=== PATIENT | male | born 1945 | race Caucasian/White ===

== ENCOUNTER → 2018-01-09 10:35 | Outpatient (CLI) | payer MEDICARE, OTHER, SELFPAY ==
[2018-01-09 11:40] LABS: Hematocrit 50.4 % (41-53); Hemoglobin 17.1 g/dL (13.5-17.5)
[2018-01-09 11:59] LABS: BUN Creatinine Ratio 14.4 (6-22); Blood Urea Nitrogen 26 mg/dL (9-20); Calcium 9.7 mg/dL (8.4-10.2); Carbon Dioxide 29 mmol/L (22-32); Chloride 100 mmol/L (98-107); Estimated Glomerular Filt Rate 37.4 mL/min (>60); Glucose 97 mg/dL (80-110); HEMOLYSIS < 15 (0-50); Potassium 4.6 mmol/L (3.4-5.1); Sodium 139 mmol/L (137-145)
[2018-01-09 15:54] LABS: Creatinine Urine Random 51.5 mg/dL; Protein (Total) Urine Random 150 mg/dL (0-12); Protein Creatinine Ratio Urine 2.91 GRAM/24H
[2018-01-13 14:57] LABS: Parathyroid Hormone Int 85 pg/mL (14-64)
== END ==
PROVIDERS: PCP Family Medicine; Visit Provider Student in an Organized Health Care Education/Training Program
DX: N05.9 Unspecified nephritic syndrome with unspecified morphologic changes (principal); D64.9 Anemia, unspecified; N25.81 Secondary hyperparathyroidism of renal origin; R80.9 Proteinuria, unspecified
CPT/HCPCS: 36415; 80048; 82570; 83970; 84156; 85014; 85018

== ENCOUNTER → 2018-03-02 13:29 | Outpatient (CLI) | payer MEDICARE, OTHER, SELFPAY ==
[2018-03-02 14:03] LABS: Hematocrit 48.4 % (41-53); Hemoglobin 16.4 g/dL (13.5-17.5)
[2018-03-02 14:40] LABS: Blood Urea Nitrogen 30 mg/dL (9-20); Calcium 9.8 mg/dL (8.4-10.2); Carbon Dioxide 28 mmol/L (22-32); Chloride 100 mmol/L (98-107); Estimated Glomerular Filt Rate 33.1 mL/min (>60); Glucose 91 mg/dL (80-110); HEMOLYSIS < 15 (0-50); Sodium 139 mmol/L (137-145)
[2018-03-02 17:56] LABS: Creatinine Urine Random 73.2 mg/dL; Protein (Total) Urine Random 74 mg/dL (0-12); Protein Creatinine Ratio Urine 1.01 GRAM/24H
[2018-03-04 13:53] LABS: Parathyroid Hormone Int 103 pg/mL (14-64)
== END ==
PROVIDERS: PCP Family Medicine; Visit Provider Student in an Organized Health Care Education/Training Program
DX: N05.9 Unspecified nephritic syndrome with unspecified morphologic changes (principal); D64.9 Anemia, unspecified; N25.81 Secondary hyperparathyroidism of renal origin; R80.9 Proteinuria, unspecified
CPT/HCPCS: 36415; 80048; 82570; 83970; 84156; 85014; 85018

== ENCOUNTER → 2018-03-31 09:32 | Outpatient (CLI) | payer MEDICARE, OTHER, SELFPAY | DX: Z23 Encounter for immunization (principal) | CPT/HCPCS: 90471; 90662 ==

== ENCOUNTER → 2018-08-03 17:41 | Outpatient (REF) | payer MEDICARE, OTHER, SELFPAY ==
[2018-08-03 17:49] LABS: Add Manual Diff / Slide Review NO; Basophils Absolute Auto 100 /uL (0-100); Basophils Percent Auto 1.4 % (0-2); Eosinophils Absolute Auto 300 /uL (0-450); Eosinophils Percent Auto 5.1 % (2-4); Hemoglobin 17.1 g/dL (13.5-17.5); Lymphocytes Absolute Auto 1300 /uL (1100-4500); Lymphocytes Percent Auto 19.9 % (25-40); Mean Corpuscular HGB Conc 32.9 % (30-36); Mean Corpuscular Hemoglobin 28.6 PG (26-34); Monocytes Absolute Auto 500 /uL (0-900); Monocytes Percent Auto 7.5 % (3-14); Neutrophils Absolute Auto 4200 /uL (1500-7000); Neutrophils Percent Auto 66.1 % (50-75); Platelet Count 170 X10^3/uL (150-400); Red Blood Cell Count 5.98 X10^6/uL (4.5-5.9); Red Cell Distribution Width 15.2 % (11.6-14.8); White Blood Cell Count 6.3 X10^3/uL (4.5-11.0)
[2018-08-03 17:54] LABS: BUN Creatinine Ratio 15.5 (6-22); Blood Urea Nitrogen 31 mg/dL (9-20); Carbon Dioxide 28 mmol/L (22-32); Chloride 101 mmol/L (98-107); Estimated Glomerular Filt Rate 33.1 mL/min (>60); Glucose 94 mg/dL (80-110); HEMOLYSIS < 15 (0-50); Potassium 4.1 mmol/L (3.4-5.1); Sodium 139 mmol/L (137-145); Uric Acid 5.4 mg/dL (3.5-8.5)
[2018-08-03 18:06] LABS: Troponin I < 0.012 ng/mL (0.01-0.034)
[2018-08-03 18:13] LABS: B Type Natriuretic Peptide 197 (<100)
[2018-08-03 18:25] LABS: Thyroid Stimulating Hormone 2.17 uIU/mL (0.47-4.68)
== END ==
LOC: LAB 17:41
PROVIDERS: PCP Family Medicine; Visit Provider Internal Medicine
DX: M10.9 Gout, unspecified (principal); I48.91 Unspecified atrial fibrillation
CPT/HCPCS: 80048; 83880; 84443; 84484; 84550; 85025

== ENCOUNTER → 2018-08-19 09:03 | Outpatient (CLI) | payer MEDICARE, OTHER, SELFPAY ==
[2018-08-19 10:11] LABS: Hematocrit 50.4 % (41-53); Hemoglobin 16.8 g/dL (13.5-17.5)
[2018-08-19 10:24] LABS: BUN Creatinine Ratio 14.4 (6-22); Blood Urea Nitrogen 26 mg/dL (9-20); Calcium 9.4 mg/dL (8.4-10.2); Carbon Dioxide 28 mmol/L (22-32); Chloride 100 mmol/L (98-107); Estimated Glomerular Filt Rate 37.4 mL/min (>60); Glucose 117 mg/dL (80-110); HEMOLYSIS < 15 (0-50); Sodium 138 mmol/L (137-145)
[2018-08-19 10:50] LABS: Creatinine Urine Random 120.2 mg/dL; Protein (Total) Urine Random 155 mg/dL (0-12); Protein Creatinine Ratio Urine 1.28 GRAM/24H
[2018-08-22 15:12] LABS: Parathyroid Hormone Int 94 pg/mL (14-64)
== END ==
PROVIDERS: PCP Family Medicine; Visit Provider Student in an Organized Health Care Education/Training Program
DX: N05.9 Unspecified nephritic syndrome with unspecified morphologic changes (principal); D64.9 Anemia, unspecified; N25.81 Secondary hyperparathyroidism of renal origin; R80.9 Proteinuria, unspecified
CPT/HCPCS: 36415; 80048; 82570; 83970; 84156; 85014; 85018

== ENCOUNTER → 2018-12-21 09:00 | Outpatient (CLI) | payer MEDICARE, OTHER, SELFPAY ==
[2018-12-21 09:36] LABS: Hematocrit 45.8 % (41-53); Hemoglobin 15.1 g/dL (13.5-17.5)
[2018-12-21 10:02] LABS: Blood Urea Nitrogen 36 mg/dL (9-20); Calcium 9.6 mg/dL (8.4-10.2); Carbon Dioxide 26 mmol/L (22-32); Chloride 105 mmol/L (98-107); Glucose 104 mg/dL (80-110); HEMOLYSIS 17 (0-50); Potassium 4.4 mmol/L (3.4-5.1); Sodium 139 mmol/L (137-145)
[2018-12-21 11:29] LABS: Creatinine Urine Random 162.3 mg/dL
[2018-12-21 11:39] LABS: Protein (Total) Urine Random 308 mg/dL (0-12); Protein Creatinine Ratio Urine 1.89 GRAM/24H
[2018-12-22 15:18] LABS: Parathyroid Hormone Int 79 pg/mL (14-64)
== END ==
PROVIDERS: PCP Family Medicine; Visit Provider Student in an Organized Health Care Education/Training Program
DX: N05.9 Unspecified nephritic syndrome with unspecified morphologic changes (principal); D64.9 Anemia, unspecified; N25.81 Secondary hyperparathyroidism of renal origin; R80.9 Proteinuria, unspecified
CPT/HCPCS: 36415; 80048; 82570; 83970; 84156; 85014; 85018

== ENCOUNTER → 2019-01-04 09:16 | Outpatient (CLI) | payer MEDICARE, OTHER, SELFPAY ==
[2019-01-04 10:42] LABS: Prostate Specific Antigen 7.99 ng/mL (0.10-4.00)
== END ==
PROVIDERS: PCP Family Medicine; Visit Provider Urology
DX: R97.20 Elevated prostate specific antigen [PSA] (principal)
CPT/HCPCS: 36415; 84153

== ENCOUNTER → 2019-04-23 13:44 | Outpatient (ROUT) | payer MEDICARE, OTHER, SELFPAY ==
[2019-04-23 14:17] LABS: Add Manual Diff / Slide Review NO; Basophils Absolute Auto 0 /uL (0-100); Basophils Percent Auto 0.8 % (0-2); Eosinophils Absolute Auto 300 /uL (0-450); Eosinophils Percent Auto 5.6 % (2-4); Hematocrit 50.6 % (41-53); Hemoglobin 16.6 g/dL (13.5-17.5); Lymphocytes Absolute Auto 1000 /uL (1100-4500); Lymphocytes Percent Auto 20.4 % (25-40); Mean Corpuscular HGB Conc 32.7 % (30-36); Mean Corpuscular Volume 88.5 fL (80-100); Monocytes Absolute Auto 400 /uL (0-900); Monocytes Percent Auto 8.7 % (3-14); Neutrophils Absolute Auto 3200 /uL (1500-7000); Neutrophils Percent Auto 64.5 % (50-75); Platelet Count 145 X10^3/uL (150-400); Red Blood Cell Count 5.72 X10^6/uL (4.5-5.9); Red Cell Distribution Width 15.6 % (11.6-14.8); White Blood Cell Count 4.9 X10^3/uL (4.5-11.0)
[2019-04-23 14:25] LABS: Alanine Aminotransferase 20 IU/L (<50); Albumin 4.5 g/dL (3.5-5.0); Albumin Globulin Ratio 1.7 (1.0-2.8); Alkaline Phosphatase 50 U/L (38-126); Aspartate Aminotransferase 32 IU/L (17-59); BUN Creatinine Ratio 17.8 (6-22); Bilirubin Total 1.2 mg/dL (0.2-1.3); Blood Urea Nitrogen 32 mg/dL (9-20); C-Reactive Protein Quant 0.6 mg/dL (<1.0); Calcium 10.3 mg/dL (8.4-10.2); Carbon Dioxide 30 mmol/L (22-32); Chloride 102 mmol/L (98-107); Cholesterol 219 mg/dL (140-199); Estimated Glomerular Filt Rate 37.3 mL/min (>60); Globulin 2.7 g/dL (1.7-4.1); Glucose 93 mg/dL (80-110); HDL Cholesterol 65 mg/dL (40-60); HEMOLYSIS 18 (0-50); LDL Cholesterol Calculated 134 mg/dL (<100); Potassium 4.8 mmol/L (3.4-5.1); Sodium 140 mmol/L (137-145); Total Protein 7.2 g/dL (6.3-8.2); Triglycerides 100 mg/dL (35-150)
[2019-04-23 14:41] LABS: Erythrocyte Sedimentation Rate 1 MM/HR (0-15)
[2019-04-23 14:52] LABS: Creatinine Urine Random 115.5 mg/dL; Protein (Total) Urine Random 175 mg/dL (0-12); Protein Creatinine Ratio Urine 1.51 GRAM/24H
== END ==
PROVIDERS: PCP Family Medicine; Visit Provider Internal Medicine
DX: H04.001 Unspecified dacryoadenitis, right lacrimal gland (principal); E78.5 Hyperlipidemia, unspecified; I10 Essential (primary) hypertension; N18.3 Chronic kidney disease, stage 3 (moderate)
CPT/HCPCS: 80053; 80061; 82570; 84156; 85025; 85651; 86140

== ENCOUNTER → 2019-04-26 08:45 | Outpatient (CLI) | payer MEDICARE, OTHER, SELFPAY ==
[2019-04-28 15:06] LABS: Angiotensin Converting Enzyme 24 U/L (9-67)
[2019-04-29 08:25] LABS: ANA Pattern NUCLEAR, SPECKLED; ANA Screen, IFA POSITIVE (NEGATIVE); ANA Titer 1:40 titer
== END ==
PROVIDERS: PCP Family Medicine; Visit Provider Internal Medicine
DX: H04.001 Unspecified dacryoadenitis, right lacrimal gland (principal); E78.5 Hyperlipidemia, unspecified; I10 Essential (primary) hypertension; N18.3 Chronic kidney disease, stage 3 (moderate)
CPT/HCPCS: 36415; 82164; 86038

== ENCOUNTER → 2019-05-04 15:38 | Outpatient (CLI) | payer MEDICARE, OTHER, SELFPAY ==
[2019-05-04 16:01] LABS: Hematocrit 49.5 % (41-53); Hemoglobin 16.6 g/dL (13.5-17.5)
[2019-05-04 17:10] LABS: BUN Creatinine Ratio 17.5 (6-22); Blood Urea Nitrogen 35 mg/dL (9-20); Calcium 10.6 mg/dL (8.4-10.2); Carbon Dioxide 33 mmol/L (22-32); Chloride 100 mmol/L (98-107); Glucose 97 mg/dL (80-110); HEMOLYSIS < 15 (0-50); Potassium 4.5 mmol/L (3.4-5.1); Sodium 141 mmol/L (137-145)
[2019-05-04 17:12] LABS: Creatinine Urine Random 166.3 mg/dL; Protein (Total) Urine Random 113 mg/dL (0-12); Protein Creatinine Ratio Urine 0.67 GRAM/24H
[2019-05-08 14:11] LABS: Parathyroid Hormone Int 68 pg/mL (14-64)
== END ==
PROVIDERS: Family Provider Internal Medicine; PCP Internal Medicine; Visit Provider Student in an Organized Health Care Education/Training Program
DX: N05.9 Unspecified nephritic syndrome with unspecified morphologic changes (principal); D64.9 Anemia, unspecified; N25.81 Secondary hyperparathyroidism of renal origin; R80.9 Proteinuria, unspecified
CPT/HCPCS: 36415; 80048; 82570; 83970; 84156; 85014; 85018

== ENCOUNTER → 2019-06-15 15:28 | Outpatient (CLI) | payer MEDICARE, OTHER, SELFPAY ==
[2019-06-15 18:33] LABS: BUN Creatinine Ratio 19.5 (6-22); Blood Urea Nitrogen 37 mg/dL (9-20); Calcium 10.4 mg/dL (8.4-10.2); Carbon Dioxide 28 mmol/L (22-32); Chloride 99 mmol/L (98-107); Glucose 93 mg/dL (80-110); HEMOLYSIS < 15 (0-50); Magnesium 2.1 mg/dL (1.6-2.3); Potassium 4.6 mmol/L (3.4-5.1); Sodium 139 mmol/L (137-145)
[2019-06-15 19:03] LABS: TSH w/ Reflex to FT4 1.82 uIU/mL (0.47-4.68)
== END ==
PROVIDERS: Family Provider Physician Assistant; PCP Internal Medicine; Referring Provider Internal Medicine; Visit Provider Student in an Organized Health Care Education/Training Program
DX: N05.9 Unspecified nephritic syndrome with unspecified morphologic changes (principal); I48.11 Longstanding persistent atrial fibrillation
CPT/HCPCS: 36415; 80048; 83735; 84443

== ENCOUNTER → 2019-06-29 13:03 | Outpatient (CLI) | payer MEDICARE, OTHER, SELFPAY ==
[2019-07-02 20:40] LABS: Albumin 4.4 g/dL (3.8-4.8); Alpha 1 Globulin 0.3 g/dL (0.2-0.3); Alpha 2 Globulin 0.5 g/dL (0.5-0.9); Beta 1 Globulin 0.3 g/dL (0.4-0.6); Gamma Globulin 1.2 g/dL (0.8-1.7)
[2019-07-03 13:18] LABS: Albumin 81 %; Protein/ Creatinine Ratio 1949 mg/g creat (22-128); Total Urine Protein 167 mg/dL (5-25); Urine Creatinine, Random 86 mg/dL (20-320)
== END ==
PROVIDERS: PCP Internal Medicine; Visit Provider Student in an Organized Health Care Education/Training Program
DX: D47.2 Monoclonal gammopathy (principal)
CPT/HCPCS: 36415; 82784; 84155; 84156; 84165; 84166; 86334; 86335

== ENCOUNTER → 2019-07-23 17:21 | Outpatient (CLI) | payer MEDICARE, OTHER, SELFPAY ==
[2019-07-23 16:15] LABS: Hematocrit 49.7 % (41-53); Hemoglobin 16.8 g/dL (13.5-17.5)
[2019-07-23 16:29] LABS: BUN Creatinine Ratio 16.3 (6-22); Blood Urea Nitrogen 31 mg/dL (9-20); Calcium 9.4 mg/dL (8.4-10.2); Carbon Dioxide 29 mmol/L (22-32); Chloride 103 mmol/L (98-107); Glucose 95 mg/dL (80-110); HEMOLYSIS 21 (0-50); Potassium 4.2 mmol/L (3.4-5.1); Sodium 139 mmol/L (137-145)
[2019-07-23 16:54] LABS: Creatinine Urine Random 46.6 mg/dL
[2019-07-23 17:14] LABS: Protein (Total) Urine Random 286 mg/dL (0-12); Protein Creatinine Ratio Urine 6.13 GRAM/24H
== END ==
PROVIDERS: PCP Internal Medicine; Referring Provider Student in an Organized Health Care Education/Training Program; Visit Provider Student in an Organized Health Care Education/Training Program
DX: N05.9 Unspecified nephritic syndrome with unspecified morphologic changes (principal); D64.9 Anemia, unspecified; N25.81 Secondary hyperparathyroidism of renal origin; R80.9 Proteinuria, unspecified
CPT/HCPCS: 36415; 80048; 82570; 83970; 84156; 85014; 85018

== ENCOUNTER → 2019-08-09 11:02 | Outpatient (CLI) | payer MEDICARE, OTHER, SELFPAY ==
[2019-08-09 12:03] LABS: Creatinine Urine Random 175.7 mg/dL
[2019-08-09 12:26] LABS: Protein (Total) Urine Random 651 mg/dL (0-12)
[2019-08-09 12:51] LABS: Prostate Specific Antigen 8.81 ng/mL (0.10-4.00)
== END ==
PROVIDERS: PCP Internal Medicine; Referring Provider Urology; Visit Provider Urology
DX: R97.20 Elevated prostate specific antigen [PSA] (principal); R80.9 Proteinuria, unspecified
CPT/HCPCS: 36415; 82570; 84153; 84156

== ENCOUNTER 2019-09-21 15:48 | Emergency (ER) | payer MEDICARE, OTHER, SELFPAY ==
[2019-09-21] VITALS (10 sets, daily range): BP systolic 150–170; BP diastolic 71–117; PULSE 111–142; RESP 16–35; TEMP 37.3; O2SAT 92–96
--- NOTE | 2019-09-21 15:48 | DI.CT.S_ITS ---
PROCEDURE: CT STROKE INDICATIONS: code stroke TECHNIQUE: Noncontrast 4.5 mm thick angled axial sections acquired from the foramen magnum to the vertex, with coronal reformats. For radiation dose reduction, the following was used: automated exposure control, adjustment of mA and/or kV according to patient size. COMPARISON: None. FINDINGS: Image quality: Excellent. CSF spaces: Basal cisterns are patent. No extra-axial fluid collections. Ventricles are normal in size and shape. Brain: No midline shift. No intracranial masses or hemorrhage. There is edema present in the left superior cerebellar hemisphere and left cerebellar vermis which most likely represents subacute infarct. Edema from tumor is not excluded. Skull and face: Calvarium and visualized facial bones are intact, without suspicious lesions. Sinuses: Visualized sinuses and mastoids are clear. IMPRESSION: Edema is present in the left superior cerebellar hemisphere and left cerebellar vermis. This is most likely cytotoxic edema secondary to subacute infarct. Vasogenic edema from tumor is not excluded. Comment: Brain MRI with and without contrast may be helpful. Comment: Findings were discussed with Dr. Long at the time of study dictation on 09/21/19 at 1601 hrs.. This study fulfills neurological imaging criteria for inclusion or exclusion of acute stroke therapies based on available published neurological imaging guidelines. Dictated by: Augustus Arvizu M.D. on 09/21/2019 at 15:55 Approved by: Augustus Arvizu M.D. on 09/21/2019 at 16:02
--- NOTE | 2019-09-21 15:51 | DI.RAD.S_ITS ---
PROCEDURE: XR CHEST 1V INDICATIONS: Possible aspiration TECHNIQUE: One view of the chest was acquired. COMPARISON: [facility], CT, CT STROKE, 09/21/2019, 15:40. FINDINGS: Surgical changes and devices: None. Lungs and pleura: Generalized interstitial prominence is seen. There is increased density seen within the right lower lung. No large pneumothorax or large pleural effusions are seen. Mediastinum: The cardiac contours are within normal limits. The aorta demonstrates calcification and tortuosity. Bones and chest wall: Age-appropriate bony degenerative changes are seen. No suspicious bony lesions. Overlying soft tissues appear unremarkable. IMPRESSION: Interstitial prominence is seen throughout. The interstitial prominence is nonspecific, yet may be related to pulmonary edema. Increased density seen within the right lower lung. Differential diagnosis includes the given history of aspiration. Differential diagnosis also includes atelectasis as well as atypical/viral infiltrate. As clinically appropriate, a short-term followup chest series (with PA and lateral views) performed in deep inspiration is suggested for further evaluation. Dictated by: Cody Krishna M.D. on 09/21/2019 at 15:19 Approved by: Cody Krishna M.D. on 09/21/2019 at 15:20
--- NOTE | 2019-09-21 15:53 | ED.GENADULT ---
HPI - General Adult General Chief complaint: Neuro Symptoms/Deficit Stated complaint: Code Stroke Time Seen by Provider: 09/21/19 15:48 Source: EMS Mode of arrival: EMS Limitations: altered mental status History of Present Illness HPI narrative: 73-year-old male brought in by EMS as a code stroke. They were called to the patient's house by a friend after the friend found the patient on the ground of his kitchen. Was covered with vomit. Patient was not speaking. Much of the history is provided by EMS and the patient's friend. Last known normal was 930 this morning when the patient was using his [employer] radio with his friends. His friend states that this morning at 0930 the patient was engaged in conversation on the radio and then was no longer talking. They stated they did not think much of it at the time however when the patient missed another ?appointment ?at 1430 this afternoon they got concerned when over to the patient's house and found him lying on the ground. Is reported that the patient does have a history of atrial fibrillation. According to the patient's friend he is on anticoagulation. Modified trauma called secondary to the fact that he potentially fell on anticoagulation. EMS reports that the patient was moving all 4 extremities. Was making sounds but was not speaking. Review of Systems Review of Systems ROS Unobtainable: Unobtainable due to mental status/LOC Patient History Medical History Atrial fibrillation (Acute) Benign hypertension (04/21/15) Chronic gout (04/21/15) Chronic prostatitis (04/21/15) Stage 3 chronic kidney disease (04/21/15) Social History lives independently: Yes Exam Initial Vital Signs Initial Vital Signs: Vital Signs Temperature 99.2 F 09/21/19 16:00 Pulse Rate 142 H 09/21/19 16:00 Respiratory Rate 22 09/21/19 16:00 Blood Pressure 150/83 H 09/21/19 16:00 Pulse Oximetry 94 09/21/19 16:00 Const General: well groomed, No acute distress, No combative, No diaphoretic and No disheveled HENMT Head: normal to inspection and normocephalic Mouth: other (Bite ag on the tongue) Eyes Pupils: PERRL (2 mm minimally reactive however equal bilateral) Resp Effort & Inspection: normal respiratory effort Auscultation: rhonchi (Bilateral right greater than left) Cardio Rate: tachycardic Rhythm: abnormal rhythm Pulses: radial pulses present GI Inspection: non-distended Palpation: soft and No firm Skin Lesions: no lesions (Abrasion to left wrist) Neuro General: awake Speech: abnormal speech Other: See NIH score Extrem General: capillary refill normal and No edema Psych Appearance: well kempt Scores GCS [place] coma scale eye opening: To sound [place] coma scale verbal response: Words Hossein coma scale motor response: Obey commands Hossein coma scale total score: 12 NIH Stroke Scale Level of Conciousness: Not alert, but arousable by minor stim to obey, answer or respond Ask month/age: Answers one question correctly, intubated follow commands Open/close eyes, close hand: Performs both tasks correctly Best gaze horizontal: Forced deviation or total gaze paresis not overcome Visual jack: Complete hemianopia Facial palsy: Normal symetrical movement Left arm drift: No drift for full 10 sec Right arm drift: Drifts down, not to bed Left leg drift: No drift for full 10 sec Right leg drift: Drifts down, not to bed Limb ataxia: Present in two limbs Sensory on face/arms/legs: Normal, no sensory loss Best language: Severe aphasia, not much is understood, fragmented Dysarthria: Severe, unintelligible Extinction or inattention: No abnormality Total NIH Stroke scale score: 14 Course Orders Ordered: ED Orders 09/21/19 15:48 CT Stroke Stat 09/21/19 15:51 XR chest 1V Stat EKG-12 Lead Stat 09/21/19 15:54 Complete Blood Count AUTO DIFF Stat Comprehensive Metabolic Panel Stat Ethanol (ETOH) Stat Lipase Stat Partial Thromboplastin Time Stat Procalcitonin Stat Prolactin Stat Prothrombin Time INR Stat Troponin I Stat 09/21/19 16:03 MR head/brain wo con Stat 09/21/19 16:05 Lactate (Lactic Acid) Stat 09/21/19 16:08 Blood Culture Stat 09/21/19 16:14 Creatine Kinase Stat Sodium Chloride (Normal Saline 0.9%) 1,000 mls @ 125 mls/hr IV CONT PAM Last Admin: 09/21/19 16:26 Dose: 125 mls/hr Documented by: HARVINDER DILTIAZEM (Diltiazem 125 Mg/125 Ml-D5w) 125 mg in 125 mls @ 5 mls/hr IV TITRATE PAM; Protocol Last Admin: 09/21/19 17:19 Dose: 5 mg/hr, 5 mls/hr Documented by: HARVINDER Discontinued Medications Diltiazem HCl (Cardizem) 10 mg IV NOW ONE Stop: 09/21/19 16:15 Last Admin: 09/21/19 16:26 Dose: 10 mg Documented by: HARVINDER Vital Signs Vital signs: Vital Signs - 8 hr 09/21/19 16:00 09/21/19 16:26 09/21/19 16:29 Temperature 99.2 F Pulse Rate 142 H 135 H 112 H Respiratory Rate 22 23 Blood Pressure 150/83 H 150/83 H Blood Pressure [Right Arm] 162/71 H Pulse Oximetry 94 94 09/21/19 16:32 09/21/19 17:21 09/21/19 18:30 Temperature Pulse Rate 111 H 112 H 118 H Respiratory Rate 22 21 19 Blood Pressure Blood Pressure [Right Arm] 170/91 H 164/97 H 166/81 H Pulse Oximetry 94 92 96 09/21/19 19:09 Temperature Pulse Rate 136 H Respiratory Rate 16 Blood Pressure Blood Pressure [Right Arm] 163/111 H Pulse Oximetry 93 Medical Decision Making Medical Records Medical records reviewed: Yes I reviewed the patient's medical records. Lab Data Lab results reviewed: Yes I reviewed the patient's lab results. Result diagrams: 09/21/19 15:54 09/21/19 15:54 Labs: Lab Results 09/21/19 09/21/19 09/21/19 Range/Units 15:54 15:54 15:54 WBC 13.2 H (4.5-11.0) X10^3/uL RBC 5.79 (4.5-5.9) X10^6/uL Hgb 16.8 (13.5-17.5) g/dL Hct 51.8 (41-53) % MCV 89.4 (80-100) fL MCH 29.0 (26-34) PG MCHC 32.4 (30-36) % RDW 15.2 H (11.6-14.8) % Plt Count 138 L (150-400) X10^3/uL Neut % (Auto) 92.5 H (50-75) % Lymph % (Auto) 2.4 L (25-40) % [place] % (Auto) 4.8 (3-14) % Eos % (Auto) 0.1 L (2-4) % Baso % (Auto) 0.2 (0-2) % Neut # (Auto) 37476 H (8274-1678) /uL Lymph # (Auto) 300 L (8387-8456) /uL [place] # (Auto) 600 (0-900) /uL Eos # (Auto) 0 (0-450) /uL Baso # (Auto) 0 (0-100) /uL PT (10.1-12.7) SECONDS INR (0.9-1.3) APTT 27 (26.4-36.2) SECONDS Sodium (137-145) mmol/L Potassium (3.4-5.1) mmol/L Chloride (98-107) mmol/L Carbon Dioxide (22-32) mmol/L BUN (9-20) mg/dL Creatinine (0.66-1.25) mg/dL Estimated GFR (>60) mL/min BUN/Creatinine Ratio (6-22) Glucose (80-110) mg/dL Lactate (0.7-2.1) mmol/L Calcium (8.4-10.2) mg/dL Total Bilirubin (0.2-1.3) mg/dL AST (17-59) IU/L ALT (<50) IU/L Alkaline Phosphatase (38-126) U/L Total Creatine Kinase (55-170) U/L Troponin I (0.01-0.034) ng/mL Total Protein (6.3-8.2) g/dL Albumin (3.5-5.0) g/dL Globulin (1.7-4.1) g/dL Albumin/Globulin Ratio (1.0-2.8) Lipase (23-300) U/L Procalcitonin 0.25 (<0.5) ng/mL Prolactin (3.7-17.9) ng/mL Ethyl Alcohol ( - 10) mg/dL 09/21/19 09/21/19 09/21/19 Range/Units 15:54 15:54 15:54 WBC (4.5-11.0) X10^3/uL RBC (4.5-5.9) X10^6/uL Hgb (13.5-17.5) g/dL Hct (41-53) % MCV (80-100) fL MCH (26-34) PG MCHC (30-36) % RDW (11.6-14.8) % Plt Count (150-400) X10^3/uL Neut % (Auto) (50-75) % Lymph % (Auto) (25-40) % [place] % (Auto) (3-14) % Eos % (Auto) (2-4) % Baso % (Auto) (0-2) % Neut # (Auto) (9270-1711) /uL Lymph # (Auto) (4222-8656) /uL [place] # (Auto) (0-900) /uL Eos # (Auto) (0-450) /uL Baso # (Auto) (0-100) /uL PT 12.4 (10.1-12.7) SECONDS INR 1.1 (0.9-1.3) APTT (26.4-36.2) SECONDS Sodium 139 (137-145) mmol/L Potassium 3.9 (3.4-5.1) mmol/L Chloride 103 (98-107) mmol/L Carbon Dioxide 23 (22-32) mmol/L BUN 35 H (9-20) mg/dL Creatinine 2.04 H (0.66-1.25) mg/dL Estimated GFR 32.3 L (>60) mL/min BUN/Creatinine Ratio 17.2 (6-22) Glucose 179 H (80-110) mg/dL Lactate (0.7-2.1) mmol/L Calcium 9.7 (8.4-10.2) mg/dL Total Bilirubin 1.1 (0.2-1.3) mg/dL AST 42 (17-59) IU/L ALT 22 (<50) IU/L Alkaline Phosphatase 48 (38-126) U/L Total Creatine Kinase (55-170) U/L Troponin I 0.036 H (0.01-0.034) ng/mL Total Protein 7.7 (6.3-8.2) g/dL Albumin 4.4 (3.5-5.0) g/dL Globulin 3.3 (1.7-4.1) g/dL Albumin/Globulin Ratio 1.3 (1.0-2.8) Lipase 91 (23-300) U/L Procalcitonin (<0.5) ng/mL Prolactin 12.9 (3.7-17.9) ng/mL Ethyl Alcohol < 10 ( - 10) mg/dL 09/21/19 09/21/19 09/21/19 Range/Units 16:05 16:14 18:29 WBC (4.5-11.0) X10^3/uL RBC (4.5-5.9) X10^6/uL Hgb (13.5-17.5) g/dL Hct (41-53) % MCV (80-100) fL MCH (26-34) PG MCHC (30-36) % RDW (11.6-14.8) % Plt Count (150-400) X10^3/uL Neut % (Auto) (50-75) % Lymph % (Auto) (25-40) % [place] % (Auto) (3-14) % Eos % (Auto) (2-4) % Baso % (Auto) (0-2) % Neut # (Auto) (7274-2103) /uL Lymph # (Auto) (9077-5985) /uL [place] # (Auto) (0-900) /uL Eos # (Auto) (0-450) /uL Baso # (Auto) (0-100) /uL PT (10.1-12.7) SECONDS INR (0.9-1.3) APTT (26.4-36.2) SECONDS Sodium (137-145) mmol/L Potassium (3.4-5.1) mmol/L Chloride (98-107) mmol/L Carbon Dioxide (22-32) mmol/L BUN (9-20) mg/dL Creatinine (0.66-1.25) mg/dL Estimated GFR (>60) mL/min BUN/Creatinine Ratio (6-22) Glucose (80-110) mg/dL Lactate 3.9 H 1.7 (0.7-2.1) mmol/L Calcium (8.4-10.2) mg/dL Total Bilirubin (0.2-1.3) mg/dL AST (17-59) IU/L ALT (<50) IU/L Alkaline Phosphatase (38-126) U/L Total Creatine Kinase 155 (55-170) U/L Troponin I (0.01-0.034) ng/mL Total Protein (6.3-8.2) g/dL Albumin (3.5-5.0) g/dL Globulin (1.7-4.1) g/dL Albumin/Globulin Ratio (1.0-2.8) Lipase (23-300) U/L Procalcitonin (<0.5) ng/mL Prolactin (3.7-17.9) ng/mL Ethyl Alcohol ( - 10) mg/dL Point of Care Testing Glucose POC 153 Point of care testing: Point of Care Testing Glucose POC 153 Imaging Data Chest x-ray: Radiologist's Impression: [address] [address] XRay Report Signed Patient: Jose Miguel Mcclain SMR#: [id number] : 7Acct:[id number] Age/Sex: 73 / MDate of Service: 09/21/19 Loc: ED Accession Number: [id number] Procedure: XR chest 1V Ordering Provider: Santosh Long D.O. PROCEDURE: XR CHEST 1V INDICATIONS: Possible aspiration TECHNIQUE: One view of the chest was acquired. COMPARISON: [facility], CT, CT STROKE, 09/21/2019, 15:40. FINDINGS: Surgical changes and devices: None. Lungs and pleura: Generalized interstitial prominence is seen. There is increased density seen within the right lower lung. No large pneumothorax or large pleural effusions are seen. Mediastinum: The cardiac contours are within normal limits. The aorta demonstrates calcification and tortuosity. Bones and chest wall: Age-appropriate bony degenerative changes are seen. No suspicious bony lesions. Overlying soft tissues appear unremarkable. IMPRESSION: Interstitial prominence is seen throughout. The interstitial prominence is nonspecific, yet may be related to pulmonary edema. Increased density seen within the right lower lung. Differential diagnosis includes the given history of aspiration. Differential diagnosis also includes atelectasis as well as atypical/viral infiltrate. As clinically appropriate, a short-term followup chest series (with PA and lateral views) performed in deep inspiration is suggested for further evaluation. Dictated by: Cody Krishna M.D. on 09/21/2019 at 15:19 Approved by: Cody Krishna M.D. on 09/21/2019 at 15:20 CT scan - head: Radiologist's Impression: [address] [address] [address] Scan Report Signed Patient: Jose Miguel Mcclain [facility]#: [id number] : 7At:[id number] Age/Sex: 73 / MDate of Service: 09/21/19 Loc: ED Accession Number: [id number] Procedure: CT Stroke Ordering Provider: Santosh Long D.O. PROCEDURE: CT STROKE INDICATIONS: code stroke TECHNIQUE: Noncontrast 4.5 mm thick angled axial sections acquired from the foramen magnum to the vertex, with coronal reformats. For radiation dose reduction, the following was used: automated exposure control, adjustment of mA and/or kV according to patient size. COMPARISON: None. FINDINGS: Image quality: Excellent. CSF spaces: Basal cisterns are patent. No extra-axial fluid collections. Ventricles are normal in size and shape. Brain: No midline shift. No intracranial masses or hemorrhage. There is edema present in the left superior cerebellar hemisphere and left cerebellar vermis which most likely represents subacute infarct. Edema from tumor is not excluded. Skull and face: Calvarium and visualized facial bones are intact, without suspicious lesions. Sinuses: Visualized sinuses and mastoids are clear. IMPRESSION: Edema is present in the left superior cerebellar hemisphere and left cerebellar vermis. This is most likely cytotoxic edema secondary to subacute infarct. Vasogenic edema from tumor is not excluded. Comment: Brain MRI with and without contrast may be helpful. Comment: Findings were discussed with Dr. Long at the time of study dictation on 09/21/19 at 1601 hrs.. This study fulfills neurological imaging criteria for inclusion or exclusion of acute stroke therapies based on available published neurological imaging guidelines. Dictated by: Augustus Arvizu M.D. on 09/21/2019 at 15:55 Approved by: Augustus Arvizu M.D. on 09/21/2019 at 16:02 MRI brain: Radiologist's Impression: [address] [address] Magnetic Resonance Report Signed Patient: Jose Miguel Mcclain [facility]#: [id number] : 7At:[id number] Age/Sex: 73 / MDate of Service: 09/21/19 Loc: ED Accession Number: [id number] Procedure: MR head/brain wo con Ordering Provider: Santosh Long D.O. PROCEDURE: MR HEAD/BRAIN WO CON INDICATIONS: Code Stroke TECHNIQUE: Non-contrast axial T1 spin echo, axial T2 fast spin echo, sagittal and axial FLAIR, coronal T2 fast spin echo, axial gradient echo, axial diffusion and ADC through the brain. After the brain imaging was acquired, the patient terminated the examination early, before the remainder ordered stroke protocol could be finished. COMPARISON: [facility], CT, CT STROKE, 09/21/2019, 15:40. FINDINGS: Image quality: Diagnostic, with note made of motion artifact. CSF spaces: Ventricles appear symmetric in size and shape. Basal cisterns are patent. No extra-axial fluid collections. Brain: Areas of diffusion weighted abnormality are seen involving both cerebellar hemispheres, primarily centrally. The cerebellar vermis is also involved. The left midbrain and the left thalamus also demonstrate abnormal diffusion weighted signal. Abnormal dark signal can be seen on the ADC maps at these sites. Developing T2-weighted signal is also seen at these sites. No intracranial bleeds or mass effects. There is cerebral volume loss for age. There are periventricular and deep white matter chronic small vessel ischemic changes. Brainstem appears normal. Normal intravascular flow voids are present. Skull and face: Calvarial bone marrow is normal in signal. Orbits are normal. Sinuses: Moderate mucosal thickening is seen within the maxillary sinuses. Mild mucosal thickening is seen within the ethmoid air cells. The frontal sinuses are poorly developed. No abnormal fluid is seen within the mastoid air cells. IMPRESSION: Subacute infarctions are seen primarily involving the cerebellum, yet also seen involving the left thalamus and the left midbrain. Paranasal sinus disease incidentally noted, primarily involving the maxillary sinuses. (The patient terminated the examination early the angiographic portions could be performed.) Dictated by: Cody Krishna M.D. on 09/21/2019 at 16:21 Approved by: Cody Krishna M.D. on 09/21/2019 at 16:26 ECG Data Attestation: I personally reviewed and interpreted this ECG as follows: Prior ECG tracings: not available for review Interpretation: Atrial fibrillation Ventricular rate of 137 Normal axis Normal QRS Nonspecific ST T wave changes MDM Narrative Medical decision making narrative: Patient arrived greater than 6 hours after his last known normal. Initial head CT concerning for cerebellar stroke. Is confirmed by MRI. Was AFib with RVR. Was given Cardizem bolus and started on a drip which improved his rate. Was never hypotensive. Initial NIH score 14. Patient outside the window for tPA. No other trauma noted on exam except for abnormalities to his tongue. Discussed the case with Dr. Rollins stroke neurologist who recommended patient be sent to neuro ICU. Then discussed the case with Dr. Collier neuro ICU who accepts the patient in transport. I did discuss transfer with family. They expressed understanding. Patient is stable for transport. Critical Care Time Critical Care Time Critical Care Time: Yes Total Critical Care Time: 45 Attestation: The high probability of a clinically significant, sudden or life threatening deterioration of the neurologic/cardiovascular system(s) required my full and direct attention, intervention and personal management. The aggregate critical care time was 45 minutes. This time is in addition to time spent performing reported procedures but includes the following: [] Data Review and interpretation [] Patient assessment and monitoring of vital signs [] Documentation [] Medication orders and management Discharge Plan Departure Patient Disposition: [facility] Clinical Impression: Cerebellar stroke, Atrial fibrillation with RVR Chronic kidney disease Qualifiers: Chronic kidney disease stage: unspecified stage Qualified Code(s): N18.9 - Chronic kidney disease, unspecified Referrals: Vida Portillo MD [Primary Care Provider] -
[2019-09-21 15:59] LABS: Add Manual Diff / Slide Review NO; Basophils Absolute Auto 0 /uL (0-100); Basophils Percent Auto 0.2 % (0-2); Eosinophils Absolute Auto 0 /uL (0-450); Eosinophils Percent Auto 0.1 % (2-4); Hematocrit 51.8 % (41-53); Hemoglobin 16.8 g/dL (13.5-17.5); Lymphocytes Absolute Auto 300 /uL (1100-4500); Lymphocytes Percent Auto 2.4 % (25-40); Mean Corpuscular HGB Conc 32.4 % (30-36); Mean Corpuscular Volume 89.4 fL (80-100); Monocytes Absolute Auto 600 /uL (0-900); Monocytes Percent Auto 4.8 % (3-14); Neutrophils Absolute Auto 12200 /uL (1500-7000); Neutrophils Percent Auto 92.5 % (50-75); Platelet Count 138 X10^3/uL (150-400); Red Blood Cell Count 5.79 X10^6/uL (4.5-5.9); Red Cell Distribution Width 15.2 % (11.6-14.8); White Blood Cell Count 13.2 X10^3/uL (4.5-11.0)
[2019-09-21 16:03] LABS: INR 1.1 (0.9-1.3); Prothrombin Time 12.4 SECONDS (10.1-12.7)
--- NOTE | 2019-09-21 16:03 | DI.MRI.S_ITS ---
PROCEDURE: MR HEAD/BRAIN WO CON INDICATIONS: Code Stroke TECHNIQUE: Non-contrast axial T1 spin echo, axial T2 fast spin echo, sagittal and axial FLAIR, coronal T2 fast spin echo, axial gradient echo, axial diffusion and ADC through the brain. After the brain imaging was acquired, the patient terminated the examination early, before the remainder ordered stroke protocol could be finished. COMPARISON: [facility], CT, CT STROKE, 09/21/2019, 15:40. FINDINGS: Image quality: Diagnostic, with note made of motion artifact. CSF spaces: Ventricles appear symmetric in size and shape. Basal cisterns are patent. No extra-axial fluid collections. Brain: Areas of diffusion weighted abnormality are seen involving both cerebellar hemispheres, primarily centrally. The cerebellar vermis is also involved. The left midbrain and the left thalamus also demonstrate abnormal diffusion weighted signal. Abnormal dark signal can be seen on the ADC maps at these sites. Developing T2-weighted signal is also seen at these sites. No intracranial bleeds or mass effects. There is cerebral volume loss for age. There are periventricular and deep white matter chronic small vessel ischemic changes. Brainstem appears normal. Normal intravascular flow voids are present. Skull and face: Calvarial bone marrow is normal in signal. Orbits are normal. Sinuses: Moderate mucosal thickening is seen within the maxillary sinuses. Mild mucosal thickening is seen within the ethmoid air cells. The frontal sinuses are poorly developed. No abnormal fluid is seen within the mastoid air cells. IMPRESSION: Subacute infarctions are seen primarily involving the cerebellum, yet also seen involving the left thalamus and the left midbrain. Paranasal sinus disease incidentally noted, primarily involving the maxillary sinuses. (The patient terminated the examination early the angiographic portions could be performed.) Dictated by: Cody Krishna M.D. on 09/21/2019 at 16:21 Approved by: Cody Krishna M.D. on 09/21/2019 at 16:26
[2019-09-21 16:06] LABS: PTT Partial Thromboplastin Tim 27 SECONDS (26.4-36.2)
[2019-09-21 16:09] LABS: Alanine Aminotransferase 22 IU/L (<50); Albumin 4.4 g/dL (3.5-5.0); Albumin Globulin Ratio 1.3 (1.0-2.8); Alkaline Phosphatase 48 U/L (38-126); Aspartate Aminotransferase 42 IU/L (17-59); BUN Creatinine Ratio 17.2 (6-22); Bilirubin Total 1.1 mg/dL (0.2-1.3); Blood Urea Nitrogen 35 mg/dL (9-20); Calcium 9.7 mg/dL (8.4-10.2); Carbon Dioxide 23 mmol/L (22-32); Chloride 103 mmol/L (98-107); Estimated Glomerular Filt Rate 32.3 mL/min (>60); Ethanol (ETOH) < 10 mg/dL; Globulin 3.3 g/dL (1.7-4.1); Glucose 179 mg/dL (80-110); HEMOLYSIS 16 (0-50); Lipase 91 U/L (23-300); Potassium 3.9 mmol/L (3.4-5.1); Sodium 139 mmol/L (137-145); Total Protein 7.7 g/dL (6.3-8.2)
--- NOTE | 2019-09-21 16:16 | PC.NURSE ---
Patient unable to touch finger to nose finger to finger on right side in exam. Difficulty running right foot up and down right leg. Coordination off
[2019-09-21 16:20] LABS: Troponin I 0.036 ng/mL (0.01-0.034)
[2019-09-21 16:22] LABS: Procalcitonin 0.25 ng/mL (<0.5)
[2019-09-21 16:25] LABS: Prolactin 12.9 ng/mL (3.7-17.9)
[2019-09-21] MEDS: dilTIAZem 5 MG/ML SDV 10 MG IV (16:26)
[2019-09-21] MEDS: SODIUM CHLORIDE 0.9% 1,000 ML 125 ML IV (16:26)
[2019-09-21 16:29] LABS: Lactate (Lactic Acid) 3.9 mmol/L (0.7-2.1)
[2019-09-21 16:30] LABS: Creatine Kinase 155 U/L (55-170)
[2019-09-21] MEDS: DILTIAZEM 125 MG/125 ML PIGGYBACK IV (17:19)
--- NOTE | 2019-09-21 17:20 | PC.NURSE ---
patient unable to hold still for entire MRI. Stopped part way through.
--- NOTE | 2019-09-21 17:23 | PC.NURSE ---
Patient has abrasion to left forearm with some swelling. Patient tongue appears swollen, bruised. Blood suctioned from mouth upon arrival to department. Swelling and bruising noted to lower lip as well. Difficult to tell if vomit or urine present on pants.
[2019-09-21 18:13] LABS: Reflexed Lactate in 2 Hours Y
[2019-09-21 18:46] LABS: Lactate 2HR (Lactic Acid Rflx) 1.7 mmol/L (0.7-2.1)
--- NOTE | 2019-09-21 20:30 | PC.NURSE ---
PT family updated on transfer of pt to [place], Daughter Nirali can be reached at [phone] for updates and questions.
== END 2019-09-21 21:03 | disposition short-term general hospital (02) ==
PROVIDERS: Emergency Provider Emergency Medicine; PCP Internal Medicine
DX: I63.9 Cerebral infarction, unspecified (principal); I48.20 Chronic atrial fibrillation, unspecified; Z79.01 Long term (current) use of anticoagulants; N18.9 Chronic kidney disease, unspecified
CPT/HCPCS: 36415; 70450; 70551; 71045; 80053; 80320; 82550; 82962; 83605; 83690; 84145; 84146; 84484; 85025; 85610; 85730; 87040; 93005; 96365; 96366; 96375; 99285; 99291